=== PATIENT | female | born 1985 | race Caucasian/White ===

== ENCOUNTER 2021-05-22 17:13 | Observation (INO) ==
[2021-05-22] MEDS ORDERED: Isovue-370 500 ML BOTTLE IVP ONE (17:34)
[2021-05-22 17:40] LABS: Hemoglobin 13.3 g/dL (11.5-15.4); Mean Corpuscular HGB Conc 33.3 g/dL (31.6-35.5); Mean Corpuscular Hemoglobin 32.1 pg (28.0-33.3); Mean Corpuscular Volume 96.6 fL (83.0-100.0); Mean Platelet Volume 9.5 fL (9.4-12.4); Platelet Count 307 K/mcL (140-400); Red Blood Count 4.14 M/mcL (3.82-4.97); Red Cell Distribution Width 12.5 % (11.5-14.5); White Blood Count 11.1 K/mcL (4.3-11.1)
[2021-05-22 18:14] LABS: BUN/Creatinine Ratio 12 (6-26); Blood Urea Nitrogen 15 mg/dL (6-20); Calcium 9.3 mg/dL (8.6-10.3); Carbon Dioxide 21 mEq/L (23-29); Chloride 111 mEq/L (98-107); Glucose 89 mg/dL (70-105); Osmolality,Calculated 292 (280-300); Potassium 3.7 mEq/L (3.5-5.1); Sodium 141 mEq/L (136-145); eGFR For African Americans > 60 (> 60); eGFR For Non-African Americans 50 (> 60)
[2021-05-22 18:22] LABS: Troponin I < 0.03 ng/mL (< 0.04)
[2021-05-22] MEDS ORDERED: Aspirin 325 MG TABLET PO ONE (18:40)
[2021-05-22] MEDS ORDERED: Perflutren Lipid Microsphere 1.3 ML in 0.9 % Sodium Chloride 8.7 ML IVP PRN (20:51)
[2021-05-22] MEDS ORDERED: Naloxone 0.4 MG/ML INJ IVP PRN (20:55)
[2021-05-22] MEDS ORDERED: Acetaminophen 325 MG TABLET PO PRN (20:55)
[2021-05-22] MEDS ORDERED: Ondansetron 4 MG/2 ML VIAL IVP PRN (20:55)
[2021-05-22] MEDS ORDERED: OXcarbazepine 150 MG TABLET PO SCH (21:15)
[2021-05-23 00:43] LABS: Estimated Average Glucose 111 mg/dl; Hematocrit 36.8 % (35.3-44.9); Hemoglobin 12.2 g/dL (11.5-15.4); Hemoglobin A1C 5.5 %; Mean Corpuscular HGB Conc 33.2 g/dL (31.6-35.5); Mean Corpuscular Hemoglobin 32.2 pg (28.0-33.3); Mean Corpuscular Volume 97.1 fL (83.0-100.0); Mean Platelet Volume 9.5 fL (9.4-12.4); Platelet Count 277 K/mcL (140-400); Red Blood Count 3.79 M/mcL (3.82-4.97); Red Cell Distribution Width 12.6 % (11.5-14.5); White Blood Count 9.6 K/mcL (4.3-11.1)
[2021-05-23 00:50] LABS: Prothrombin Time 11.7 Seconds (9.4-12.1)
[2021-05-23 00:53] LABS: Activated Partial Thrombo Time 32.3 Seconds (26.0-36.0)
[2021-05-23 01:03] LABS: BUN/Creatinine Ratio 18 (6-26); Blood Urea Nitrogen 16 mg/dL (6-20); Calcium 8.9 mg/dL (8.6-10.3); Carbon Dioxide 21 mEq/L (23-29); Chloride 112 mEq/L (98-107); Chol/HDL Ratio 4.8 (0-4.9); Cholesterol 126 mg/dL (< 200); Glucose 138 mg/dL (70-105); HDL Cholesterol 26 mg/dL (40-59); Iron 65 mcg/dL (50-170); LDL Cholesterol,Calculated 43 mg/dL (< 100); Magnesium 1.9 mg/dL (1.6-2.6); Osmolality,Calculated 295 (280-300); Potassium 3.5 mEq/L (3.5-5.1); Sodium 141 mEq/L (136-145); Triglycerides 286 mg/dL (< 150); eGFR For African Americans > 60 (> 60); eGFR For Non-African Americans > 60 (> 60)
[2021-05-23 01:16] LABS: Thyroid Stimulating Hormone 1.289 mcIU/mL (0.340-5.600)
[2021-05-23 01:21] LABS: Ferritin 36 ng/mL (10-120)
[2021-05-23 01:27] LABS: Folate 6.5 ng/mL (3.0-16.0)
[2021-05-23 03:19] VITALS: O2SAT 97
[2021-05-23 03:47] LABS: % Iron Saturation 21 % (15-50); Transferrin 223 mg/dL (203-362)
[2021-05-23 07:09] VITALS: TEMP 98
[2021-05-23] MEDS ORDERED: Aspirin Enteric Coated 81 MG Tablet PO SCH (09:00)
[2021-05-23 11:08] VITALS: BP 108/73; PULSE 70
[2021-05-23] MEDS ORDERED: Topiramate 100 MG TABLET PO SCH (12:00)
[2021-05-23] MEDS ORDERED: traZODone 50 MG TABLET PO SCH (21:00)
== END 2021-05-23 15:40 | disposition home or self-care (01) ==
LOC: EMEROOARM 17:13 → 3BNU 17:13
PROVIDERS: ADMIT Internal Medicine; ATTEND Internal Medicine